=== PATIENT | male | born 1960 | race Caucasian/White ===

== ENCOUNTER 2023-10-15 09:49 | Outpatient (REF) | payer MEDICARE, SELFPAY | END 2023-10-15 09:50 | disposition home or self-care (01) | LOC: HO.HOSX 09:49 | PROVIDERS: Visit Provider Orthopaedic Surgery | DX: M54.50 Low back pain, unspecified (principal) | CPT/HCPCS: 99202 ==

== ENCOUNTER 2023-10-15 13:39 | Outpatient (AMB) | payer MEDICARE, SELFPAY ==
--- NOTE | 2023-10-15 13:43 | A.OFFVIS_ITS ---
Intake Vital Signs 10/15/23 13:48 Height 5 ft 9 in Weight 226 lb BMI 33.4 Intake Visit Reasons: [employer]-Right hip pain Intake Note: Kevin is a 63 year old male who presents today with complaints of progressively worsening low back pain which radiates into his right hip and right leg. Patient states that his symptoms have gotten worse over the last year in spite of continued non operative treatments. He has been seen by a chiropractor. The chiropractic treatments gave him mild relief. The patient states that he has difficulty walking even short distances because of his pain. He has tried Tylenol and anti-inflammatory medicines which gave him minimal relief. The patient states that at times his pain is so severe that he has difficulty getting out of bed. He also reports intermittent weakness in his right leg. He has done physical therapy which aggravated his pain. Allergies No Known Allergies Allergy (Verified 10/15/23 13:48) Medication List - Last Reconciled 10/15/23 by Chuckie Echevarria MD atenolol mg PO etodolac 400 mg PO BID fluticasone propion-salmeterol 250-50 mcg/dose (Advair Diskus) 1 ea inhalation BID fluticasone propionate 50 mcg/actuation sprays intranasal folic acid 1 mg PO DAILY losartan-hydrochlorothiazide 100-25 mg 1 tab PO DAILY methotrexate sodium mg PO montelukast 10 mg PO DAILY omeprazole 20 mg PO DAILY terazosin 10 mg PO DAILY PFSH Surgical History (Updated 10/15/23 @ 13:50 by Chanell Wynne CMA) Hx of hernia repair Physical Exam Vital Signs: BMI result Body Mass Index 33.4 Const Other: Well-nourished well-developed very friendly male awake alert and oriented x3 in no acute distress Back/Spine/Pelvis Other: Low back examination shows right-sided paraspinal muscle tenderness, pain with range of motion, positive straight leg raise test on the right at 70 degrees, 4/5 strength with testing of his right hip flexors and knee extensors when compared to 5/5 strength on his left side Extrem Other: Right hip examination shows full range of motion when compared to his left hip, minimal discomfort with range of motion, no tenderness over his bursa Results Reviewed Results Reviewed: X-rays of the patient's right hip taken at [facility] show mild diffuse joint space narrowing, no acute bony abnormalities Assessment & Plan Assessment & Plan (1) Low back pain: Code(s): M54.50 - Low back pain, unspecified Plan Mr. Aburto presents with progressively worsening low back pain which radiates down his right leg as well as associated right leg weakness possibly due to a disc herniation or lumbar stenosis. Thus, I will send the patient for a CT scan of his lumbar spine for further evaluation. The patient is not able to get an MRI because of metal fragments within his body. I will contact the patient by phone once the CT scan results are available. He will call me prior to that time should his symptoms worsen in any way. Feel free to call me at any time should questions regarding his orthopedic management arise. Thank you very much for asking me to see this very friendly gentleman. I spent 22 minutes in reviewing the patient's records and imaging studies, seeing the patient and documenting in the medical record. Orders: Orders XR hip RT min 2V Today M25.551 - Pain in right hip CT lumbar spine wo IV con Today M54.50 - Low back pain, unspecified Coding Level of Care Code New Pt Level 2 (14160) Diagnoses Low back pain M54.50
[2023-10-15 13:48] VITALS: BMI 33.4
== END 2023-10-15 14:28 | disposition home or self-care (01) ==
PROVIDERS: PCP Internal Medicine; Visit Provider Orthopaedic Surgery
DX: M54.50 Low back pain, unspecified (principal)
CPT/HCPCS: 99202